=== PATIENT | male | born 1975 | race Caucasian/White ===

== ENCOUNTER 2018-12-23 18:02 | Emergency (ER) | payer OTHER ==
[~2018-12-23] VITALS: Ht 182.9 cm; Wt 91.6 kg
[2018-12-23 18:20] VITALS: BP 127/78
--- NOTE | 2018-12-23 18:20 | NUR ---
PT AMBULATED TO BED 10.
--- NOTE | 2018-12-23 18:26 | NUR ---
c/o right testicular pain x 4 days ; denies injury or dysuria
--- NOTE | 2018-12-23 18:26 | NUR ---
urine sample collected--at bedside
--- NOTE | 2018-12-23 19:05 | NUR ---
REPORT RECEIVED FROM ELIUD RN.
--- NOTE | 2018-12-23 19:33 | NUR ---
Dr. Weinstein examining patient.
[2018-12-23 19:37] LABS: APPEARANCE,URINE CLEAR (CLEAR); BILIRUBIN,URINE NEGATIVE (NEGATIVE); BLOOD, URINE NEGATIVE (NEGATIVE); COLOR,URINE YELLOW (YELLOW); LEUKOCYTE ESTERASE ,URINE NEGATIVE (NEGATIVE); NITRITE, URINE NEGATIVE (NEGATIVE); PH,URINE 6.5 (5.0-9.0); UGLUCOSE NEGATIVE (NEGATIVE)
--- NOTE | 2018-12-23 19:53 | NUR ---
Ultrasound at bedside.
[2018-12-23 20:25] VITALS: BP 127/78
--- NOTE | 2018-12-23 20:25 | NUR ---
DISCHARGE PAPERS GIVEN TO PT. PT STATES PAIN 09/24 BUT TOLLERABLE. RX OF IBUPROFEN GIVEN. SIDE EFFECTS EXLPAINED. INSTRUCTED TO F/U WITH PCP AND WHEN TO RETURN TO ER. PT VERBALLIZED UNDERSTANDING OF DC INSTRUCTIONS. ALL QUETIONS ANSWERED.
--- NOTE | 2018-12-23 20:30 | NUR ---
DR PRETTY NOTIFIED NURSING THAT PT IS TO BE CONTACTED TO RETURN TO ER FOR FURTHER PERSCRIPTION AND TREATMENT. [facility] CONTACTED.
[2018-12-23] MEDS ORDERED: AZITHROMYCIN 250 MG TAB PO ONE (20:35)
[2018-12-23] MEDS ORDERED: cefTRIAXone 250 MG in LIDOCAINE MPF 1% - 5 mL VIAL 0.9 ML IM ONE (20:35)
--- NOTE | 2018-12-23 22:00 | NUR ---
CONTACTED [facility] PT IS STAYING AT. PT ONLY PROVIDED [facility] NUMBER. NO RESPONSE. MESSAGE LEFT.
--- NOTE | 2018-12-24 08:46 | NUR ---
CONTACTED [facility] PT IS STAYING AT. PT ONLY PROVIDED [facility] NUMBER. NO RESPONSE. MESSAGE LEFT
[2018-12-26 06:12] LABS: CHLAMYDIA TRACHOMATIS AMP DNA Negative (Negative)
== END 2018-12-23 20:25 | disposition home or self-care (01) ==
LOC: MED 18:02
DX: N43.2 Other hydrocele (principal); N45.2 Orchitis
CPT/HCPCS: 36415; 76870; 81003; 99284; Q0092; 87491